=== PATIENT | male | born 1990 | race Two or more races ===

== ENCOUNTER 2023-04-07 08:37 | Emergency (ER) | payer OTHER ==
[2023-04-07 08:43] VITALS: BP 159/93; PULSE 83; RESP 18; TEMP 97.8; BMI 36.1
[2023-04-07] MEDS ORDERED: SODIUM CHLORIDE 0.9% 500 ML INFUS.BAG IV ONE (09:59)
[2023-04-07] MEDS ORDERED: ACETAMINOPHEN 500 MG TABLET (FP) PO ONE (09:59)
[2023-04-07] MEDS ORDERED: KETOROLAC TROMETHAMINE 30 MG/1 ML VIAL IVPUSH ONE (09:59)
[2023-04-07] MEDS ORDERED: KETOROLAC TROMETHAMINE 30 MG/1 ML VIAL ONE (10:14)
[2023-04-07] MEDS ORDERED: ACETAMINOPHEN 325 MG TABLET (FP) ONE (10:14)
[2023-04-07 10:35] LABS: URINE APPEARANCE CLEAR; URINE BILIRUBIN NEGATIVE (NEGATIVE); URINE COLOR YELLOW; URINE GLUCOSE (UA) NEGATIVE (NEGATIVE); URINE KETONE NEGATIVE (NEGATIVE); URINE LEUK ESTERASE NEGATIVE (NEGATIVE); URINE NITRITE NEGATIVE (NEGATIVE); URINE PROTEIN NEGATIVE (NEGATIVE); URINE UROBILINOGEN 0.2 mg/dL (0.2-1.0)
[2023-04-07 10:52] LABS: POTASSIUM 3.8 mmol/L (3.5-5.1)
[2023-04-07 10:54] LABS: CALCIUM 8.7 mg/dL (8.5-10.1)
[2023-04-07 10:55] LABS: ALBUMIN 3.9 g/dl (3.4-5.0); BLOOD UREA NITROGEN 11.2 mg/dL (7-18)
[2023-04-07 10:58] LABS: CREATININE 0.8 mg/dL (0.55-1.3)
[2023-04-07 11:00] LABS: BILIRUBIN,TOTAL 0.4 mg/dL (0.2-1); TOT PROT 7.4 g/dl (6.4-8.2)
[2023-04-07 11:49] LABS: BASO % 0.2 % (0-2.0); EOS % 1.1 % (0-4.5); HEMATOCRIT 45.8 % (35.4-49); LYMPH % 23.9 % (8-40); MCH 32.7 pg (25.7-33.7); MCHC 34.9 g/dl (32.0-35.9); MEAN CELL VOLUME 93.6 fl (80-96); MONO % 8.8 % (3.8-10.2); PLATELET COUNT 203 10^3/uL (134-434); RDW 13.9 % (11.9-15.9); WHITE BLOOD COUNT 6.2 K/mm3 (4.0-10.0)
== END 2023-04-07 13:21 | disposition home or self-care (01) ==
LOC: JERFT 08:37
PROC: 3E0333Z Introduction of Anti-inflammatory into Peripheral Vein, Percutaneous Approach (ICD-10-PCS; principal; 2023-04-07)
DX: M79.10 Myalgia, unspecified site (principal); Z20.822 Contact with and (suspected) exposure to COVID-19
CPT/HCPCS: 0241U-QW; 36415; 80053; 81003; 82550; 82553; 85025; 99284-25

== ENCOUNTER 2023-10-12 05:08 | Emergency (ER) | payer OTHER ==
[2023-10-12 05:13] VITALS: TEMP 98.9; BMI 37.8
[2023-10-12] MEDS ORDERED: ONDANSETRON 4 MG/2 ML VIAL ONE (05:30)
[2023-10-12] MEDS ORDERED: FAMOTIDINE 20 MG/50 ML IVPB 20 MG/50 ML MG IVPB ONE (05:30)
[2023-10-12] MEDS: LACTATED RINGERS SOLUTION 1000 ML INFUS.BAG IV ONE (05:49)
[2023-10-12] MEDS: FAMOTIDINE 20 MG/50 ML IVPB 20 MG/50 ML MG IVPB ONE (05:49)
[2023-10-12] MEDS: ONDANSETRON 4 MG/2 ML VIAL IVPUSH ONE (05:49)
[2023-10-12 06:22] LABS: BASO % 0.3 % (0-2.0); EOS % 1.7 % (0-4.5); HEMATOCRIT 45.2 % (35.4-49); LYMPH % 28.2 % (8-40); MCH 33.5 pg (25.7-33.7); MCHC 35.4 g/dl (32.0-35.9); MEAN CELL VOLUME 94.7 fl (80-96); MEAN PLT VOLUME 8.7 fl (7.5-11.1); MONO % 9.2 % (3.8-10.2); NEUT % 60.6 % (42.8-82.8); PLATELET COUNT 207 10^3/uL (134-434); RBC 4.78 M/mm3 (4.00-5.60); RDW 13.4 % (11.9-15.9); WHITE BLOOD COUNT 7.5 K/mm3 (4.0-10.0)
[2023-10-12] MEDS ORDERED: MAG HYDROX/AL HYDROX/SIMETH 30 ML UNIT-DOSE CUP ONE ×2 (06:23→10:28)
[2023-10-12] MEDS: MAG HYDROX/AL HYDROX/SIMETH 30 ML UNIT-DOSE CUP PO ONE ×2 (06:27→10:32)
[2023-10-12 06:40] LABS: POTASSIUM 3.9 mmol/L (3.5-5.1)
[2023-10-12 06:42] LABS: BLOOD UREA NITROGEN 12.6 mg/dL (7-18)
[2023-10-12 06:43] LABS: ALBUMIN 3.9 g/dl (3.4-5.0)
[2023-10-12 06:45] LABS: CREATININE 0.8 mg/dL (0.55-1.3)
[2023-10-12 06:47] LABS: BILIRUBIN,TOTAL 0.5 mg/dL (0.2-1); TOT PROT 7.7 g/dl (6.4-8.2)
[2023-10-12] MEDS ORDERED: morphine SULFATE 4 MG/ML VIAL ONE (07:06)
[2023-10-12] MEDS: morphine CARPU-JECT 4 MG/1 ML DISP.SYRIN IVPUSH ONE (07:08)
[2023-10-12] MEDS ORDERED: ACETAMINOPHEN INJECTION 100 ML IVPB ONE (10:27)
[2023-10-12] MEDS: ACETAMINOPHEN 1000 MG/100 ML BAG IVPB ONE (10:32)
[2023-10-12 12:06] VITALS: BP 121/77; PULSE 83; RESP 17
== END 2023-10-12 13:48 | disposition home or self-care (01) ==
LOC: JER 05:08
PROC: 3E033GC Introduction of Other Therapeutic Substance into Peripheral Vein, Percutaneous Approach (ICD-10-PCS; principal; 2023-10-12)
PROC: 3E033NZ Introduction of Analgesics, Hypnotics, Sedatives into Peripheral Vein, Percutaneous Approach (ICD-10-PCS; 2023-10-12)
PROC: 3E033NZ Introduction of Analgesics, Hypnotics, Sedatives into Peripheral Vein, Percutaneous Approach (ICD-10-PCS; 2023-10-12)
PROC: 3E033GC Introduction of Other Therapeutic Substance into Peripheral Vein, Percutaneous Approach (ICD-10-PCS; 2023-10-12)
DX: R11.2 Nausea with vomiting, unspecified (principal); R10.13 Epigastric pain
CPT/HCPCS: 36415; 76705-TC; 80053; 83690; 85025; 93005; 93010; 99285-25; J0131

== ENCOUNTER 2023-11-06 04:25 | Day surgery (SDC) | payer OTHER ==
[2023-11-01 12:19] VITALS: BMI 37.8
[2023-11-06] MEDS ORDERED: ONDANSETRON 4 MG/2 ML VIAL IVPUSH PRN (08:08)
[2023-11-06] MEDS ORDERED: oxyCODONE HCL 5 MG TABLET PO PRN ×2 (08:08)
[2023-11-06] MEDS ORDERED: BUPIVACAINE HCL/PF 0.25% (2.5MG/ML) 10 ML VIAL ONE ×2 (08:10→08:21)
[2023-11-06] MEDS ORDERED: SEVOFLURANE 250 ML BTL ONE (08:12)
[2023-11-06] MEDS ORDERED: LACTATED RINGERS SOLUTION 1,000 ML IV SCH (08:15)
[2023-11-06] MEDS ORDERED: ROCURONIUM BROMIDE 50 MG/5 ML VIAL ONE (08:16)
[2023-11-06] MEDS ORDERED: PROPOFOL 40 ML ONE (08:16)
[2023-11-06] MEDS ORDERED: LIDOCAINE HCL/PF 2% SDV 5ML VIAL ONE ×2 (08:16→08:18)
[2023-11-06] MEDS ORDERED: MIDAZOLAM HCL 2 MG/2 ML SINGLE DOSE VIAL ONE ×2 (08:16→08:26)
[2023-11-06] MEDS ORDERED: SUGAMMADEX SODIUM 200 MG/2 ML VIAL ONE (08:16)
[2023-11-06] MEDS ORDERED: KETOROLAC TROMETHAMINE 30 MG/1 ML VIAL ONE ×2 (08:16→08:18)
[2023-11-06] MEDS ORDERED: DEXAMETHASONE SOD PHOSPHATE 4 MG/1 ML VIAL ONE ×2 (08:16→08:18)
[2023-11-06] MEDS ORDERED: FENTANYL CITRATE/PF 50 MCG/ML VIAL ONE ×5 (08:17→10:47)
[2023-11-06] MEDS ORDERED: ONDANSETRON 4 MG/2 ML VIAL ONE (08:18)
[2023-11-06] MEDS ORDERED: METOCLOPRAMIDE HCL INJECTION 10 MG/2 ML VIAL ONE (08:18)
[2023-11-06] MEDS ORDERED: SUCCINYLCHOLINE CHLORIDE 200 MG/10 ML SYRINGE ONE (08:19)
[2023-11-06] MEDS ORDERED: ROCURONIUM BROMIDE 50 MG/5 ML SYRINGE ONE (08:24)
[2023-11-06] MEDS ORDERED: PROPOFOL 20 ML ONE (08:29)
[2023-11-06] MEDS ORDERED: HEPARIN NA (PORCINE) 5,000 UNITS/ML 1ML VIAL ONE (08:38)
[2023-11-06] MEDS ORDERED: cefOXitin SODIUM 2 GM VIAL (RESTRICTED TO ID) IVPB ONE (08:38)
[2023-11-06] MEDS: cefOXitin SODIUM 1 GM VIAL (RESTRICTED TO ID) IVPB ONE (08:49)
[2023-11-06] MEDS: HEPARIN NA (PORCINE) 5,000 UNITS/ML 1ML VIAL SQ ONE (08:50)
[2023-11-06] MEDS: BUPIVACAINE HCL/PF 0.25% (2.5MG/ML) 10 ML VIAL IJ ONE (08:58)
[2023-11-06] MEDS: ACETAMINOPHEN 1000 MG/100 ML BAG IVPB PRN (10:15)
[2023-11-06] MEDS ORDERED: ACETAMINOPHEN INJECTION 100 ML IVPB ONE (10:15)
[2023-11-06 11:59] VITALS: RESP 16
[2023-11-06 12:14] VITALS: PULSE 80
[2023-11-06] MEDS ORDERED: oxyCODONE HCL 5 MG TABLET ONE (12:16)
[2023-11-06] MEDS: oxyCODONE HCL 5 MG TABLET PO ONE (12:20)
[2023-11-06 13:47] VITALS: BP 133/93; TEMP 98.9
== END 2023-11-06 13:40 | disposition home or self-care (01) ==
LOC: JASU-SURG 04:25
PROVIDERS: ATTEND Surgery
PROC: 0FT44ZZ Resection of Gallbladder, Percutaneous Endoscopic Approach (ICD-10-PCS; principal; 2023-11-06 09:00)
DX: K81.1 Chronic cholecystitis (principal)
CPT/HCPCS: 88304-TC; 94760; J0131; J1644